=== PATIENT | male | born 1955 | race Caucasian/White ===

== ENCOUNTER 2023-09-13 07:47 | Outpatient (CLI) | payer MEDICARE, SELFPAY ==
--- NOTE | ~2023-09-13 | MR_ITS ---
EXAMINATION: MR abdomen wo/w con, MR pelvis wo/w con DATE: 09/13/2023 09:51 INDICATION: Right lower quadrant abdominal pain TECHNIQUE: 1. Magnetic resonance imaging (MRI) of the abdomen was performed without and with 14 mL Multihance in travenous contrast. Sequences included coronal T2-weighted SS-FSE, coronal and axial FS 2D-FIESTA, a xial STIR FSE, axial T2-weighted SS-FSE, axial T2-weighted FS SS-FSE, axial diffusion-weighted SE, ax ial dual-echo T1-weighted FSPGR, and axial and coronal T1-weighted LAVA. Postcontrast axial T1-weight ed LAVA images were obtained in a time course. Postcontrast coronal T1-weighted LAVA images were obta ined. 2. MRI of the pelvis was performed without and with 14 mL MultiHance intravenous contrast. [place] sequences of the pelvis included axial and coronal T2-weighted SS FSE, axial and coronal T2-weighted SS FS FSE, axial and coronal 2D FIESTA, axial and coronal 2D FS FIESTA, axial dual-echo T1-weighted F SPGR, axial and coronal T1 weighted LAVA, axial STIR FSE, and axial DWI. Postcontrast sequences inclu ded coronal T1 weighted LAVA and a time course axial T1-weighted LAVA. COMPARISON: None. FINDINGS: Abdomen: Heart size is normal. No pericardial or pleural effusion. Mild dependent atelectasis in bilateral low er lobes. 5 mm T2 hyperintense nonenhancing cyst in the right hepatic lobe. No intra or extrahepatic biliary ductal dilation. Gallbladder, spleen, pancreas, bilateral adrenal glands and kidneys are norm al. No bowel obstruction. There is moderate diverticulosis along the sigmoid colon without adjacent f rom trace stranding to suggest diverticulitis. The appendix is not visualized. No pericecal inflammat ory change to suggest acute appendicitis. There is trabeculated mucosal surface to the bladder which can be seen with chronic outlet obstruction from the mildly enlarged prostate which measures 4.5 x 2. 9 cm. No free fluid or abscess in the abdomen or pelvis. No pathologically enlarged abdominal or pelv ic lymphadenopathy. Mild lumbar spondylosis. No pathologic marrow replacing process. There are foci o f susceptibility artifact along the anterior abdominal wall likely related to prior surgery. IMPRESSION: 1. No evident acute intra-abdominal/pelvic process. 2. Diverticulosis. 2. Trabeculated bladder mucosa which could be seen in setting of chronic outlet obstruction from the is enlarged prostate. Reviewed, dictated and finalized at location A. IMPRESSION: 1. No evident acute intra-abdominal/pelvic process. 2. Diverticulosis. 2. Trabeculated bladder mucosa which could be seen in setting of chronic outlet obstruction from the is enlarged prostate.
== END 2023-09-13 07:48 | disposition home or self-care (01) ==
PROVIDERS: Visit Provider Urology
DX: R10.31 Right lower quadrant pain (principal); K57.30 Diverticulosis of large intestine without perforation or abscess without bleeding
CPT/HCPCS: 72197; 74183; A9577